=== PATIENT | male | born 1970 | race Caucasian/White ===

== ENCOUNTER 2017-02-19 10:57 | Emergency (ER) | payer OTHER ==
[~2017-02-19] VITALS: Ht 172.7 cm; Wt 132.0 kg
[2017-02-19 10:58] VITALS: BP 162/104
[2017-02-19] MEDS ORDERED: SODIUM CHLORIDE FLUSH 10ML SYR IVF ONE (13:30)
[2017-02-19] MEDS ORDERED: LIDOCAINE 1%-EPI 1:100K, 20ML INFIL ONE (13:30)
[2017-02-19] MEDS ORDERED: CEFOTETAN PMX 1GM/50ML 50 ML IVPB ONE (13:30)
[2017-02-19] MEDS ORDERED: CEFOTETAN PMX 1GM/50ML 50 ML ONE (13:41)
[2017-02-19 14:01] LABS: HEMATOCRIT 44.3 % (39.2-51.8); HEMOGLOBIN 15.3 g/dL (13.7-18.0)
[2017-02-19 14:15] LABS: BLOOD UREA NITROGEN 14 mg/dL (7-18)
[2017-02-19] MEDS ORDERED: SODIUM CHLORIDE 0.9% 1,000ML IVBOLUS ONE (15:00)
[2017-02-19] MEDS ORDERED: LIDOCAINE 1%, 20ML ONE (15:33)
== END 2017-02-19 16:37 | disposition home or self-care (01) ==
LOC: ED 16:35
DX: K61.1 Rectal abscess (principal); M10.9 Gout, unspecified; I10 Essential (primary) hypertension
CPT/HCPCS: 36415; 46040; 74176; 80048; 82040; 85025; 87040; 87070; 87205; 96365; 99285; J7030; S0074; 87077

== ENCOUNTER 2017-02-21 16:04 | Emergency (ER) | payer OTHER ==
[~2017-02-21] VITALS: Ht 172.7 cm; Wt 135.3 kg
[2017-02-21 16:05] VITALS: BP 150/88
== END 2017-02-21 17:06 | disposition left against medical advice (07) ==
LOC: ED 17:00
DX: Z53.21 Procedure and treatment not carried out due to patient leaving prior to being seen by health care provider (principal)